=== PATIENT | male | born 2000 | race African-American/Black ===

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

== ENCOUNTER 2021-08-02 19:35 | Emergency (ER) | payer MEDICAID ==
[~2021-08-02] VITALS: Ht 182.9 cm; Wt 80.0 kg
[~2021-08-02 19:35] MED LIST: ALBU6.7H9 INH
[2021-08-02 20:13] VITALS: BP 118/67
[2021-08-02] MEDS ORDERED: P50 MT (20:49)
[2021-08-02] MEDS ORDERED: ALBU6.7H15 INH (20:50)
[2021-08-02] MEDS ORDERED: PREDNISONE 20MG TABLET PO ONE (21:00)
== END 2021-08-02 22:43 | disposition home or self-care (01) ==
LOC: ER 19:35
DX: J45.901 Unspecified asthma with (acute) exacerbation (principal); D64.9 Anemia, unspecified; J45.909 Unspecified asthma, uncomplicated
CPT/HCPCS: 93005; 99283; J7512